=== PATIENT | male | born 2000 | race Caucasian/White ===

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

== ENCOUNTER 2018-08-31 13:29 | Emergency (ER) | payer OTHER ==
[2018-08-31] MEDS: IBUPROFEN 600 MG TAB PO (14:55)
== END 2018-08-31 16:16 | disposition home or self-care (01) ==
LOC: FTE 13:29
DX: M25.512 Pain in left shoulder (principal)
CPT/HCPCS: 73030; 99283-25

== ENCOUNTER 2019-02-01 13:30 | Emergency (ER) | payer OTHER | END 2019-02-01 13:58 | disposition home or self-care (01) | LOC: E/R 13:58 | DX: H65.92 Unspecified nonsuppurative otitis media, left ear (principal) | CPT/HCPCS: 99283; Z7502 ==